=== PATIENT | male | born 2000 | race Caucasian/White ===

== ENCOUNTER 2019-07-08 14:46 | Emergency (ER) | payer OTHER ==
[~2019-07-08] VITALS: Ht 185 cm; Wt 114.0 kg
[2019-07-08] MEDS ORDERED: LIDOCAINE 1% INJ 20 ML 20 ML VIAL ONE (14:59)
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
[2019-07-08 15:45] VITALS: BP 123/73
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
== END 2019-07-08 15:48 | disposition home or self-care (01) ==
LOC: ER 14:49
DX: S01.111A Laceration without foreign body of right eyelid and periocular area, initial encounter (principal); R40.2142 Coma scale, eyes open, spontaneous, at arrival to emergency department; R40.2252 Coma scale, best verbal response, oriented, at arrival to emergency department; R40.2362 Coma scale, best motor response, obeys commands, at arrival to emergency department; W50.0XXA Accidental hit or strike by another person, initial encounter; Y93.63 Activity, rugby
CPT/HCPCS: 12013